=== PATIENT | male | born 1970 | race African-American/Black ===

== ENCOUNTER 2021-01-26 00:23 | Emergency (ER) | payer SELFPAY ==
[~2021-01-26] VITALS: Ht 162.6 cm; Wt 63.6 kg
[2021-01-26] MEDS ORDERED: DiphenhydrAMINE HCL 50 MG/ML VIAL IVP STA (02:59)
[2021-01-26] MEDS ORDERED: PERMETHRIN 5% 60 GM CREAM TP ONE (03:00)
[2021-01-26] MEDS ORDERED: PERTUSS(ACELL),DIPH,TET VAC/PF 0.5 ML SYRINGE IM. ONE (03:00)
[2021-01-26] MEDS ORDERED: DiphenhydrAMINE HCL 25 MG CAPSULE PO ONE (03:00)
[2021-01-26 03:10] VITALS: BP 128/79
== END 2021-01-26 03:59 | disposition home or self-care (01) ==
LOC: EMS 00:25
DX: S61.217A Laceration without foreign body of left little finger without damage to nail, initial encounter (principal); B86 Scabies; L29.9 Pruritus, unspecified; I10 Essential (primary) hypertension; Z88.5 Allergy status to narcotic agent; W26.0XXA Contact with knife, initial encounter; Y93.89 Activity, other specified; Y92.89 Other specified places as the place of occurrence of the external cause; Y99.8 Other external cause status
CPT/HCPCS: 90471; 90715; 99283

== ENCOUNTER 2021-03-10 12:06 | Emergency (ER) | payer SELFPAY ==
[~2021-03-10] VITALS: Ht 162.6 cm; Wt 69.1 kg
[2021-03-10 12:17] VITALS: BP 135/97
== END 2021-03-10 14:11 | disposition home or self-care (01) ==
LOC: EMS 12:29
DX: B86 Scabies (principal)
CPT/HCPCS: 99282; Z7502

== ENCOUNTER 2021-03-11 19:25 | Emergency (ER) | payer MEDICAID ==
[~2021-03-11] VITALS: Ht 162.6 cm; Wt 69.5 kg
[2021-03-11 21:23] VITALS: BP 149/78
[2021-03-11] MEDS ORDERED: PERMETHRIN 5% 60 GM CREAM TP ONE (21:45)
[2021-03-11] MEDS ORDERED: DiphenhydrAMINE HCL 25 MG CAPSULE PO ONE (22:00)
== END 2021-03-11 22:21 | disposition home or self-care (01) ==
LOC: EMS 19:27
DX: B86 Scabies (principal); I10 Essential (primary) hypertension; Z88.5 Allergy status to narcotic agent
CPT/HCPCS: 99283

== ENCOUNTER 2021-04-18 13:13 | Emergency (ER) | payer MEDICAID ==
[~2021-04-18] VITALS: Ht 165.1 cm; Wt 68.2 kg
[2021-04-18] MEDS ORDERED: CHOL400T56 PO (13:15)
[2021-04-18 13:18] VITALS: BP 163/99
== END 2021-04-18 14:30 | disposition home or self-care (01) ==
LOC: EMS 13:16
DX: I10 Essential (primary) hypertension (principal); Z88.5 Allergy status to narcotic agent
CPT/HCPCS: 99281; Z7502

== ENCOUNTER 2022-03-09 06:44 | Emergency (ER) | payer MEDICAID ==
[~2022-03-09] VITALS: Ht 162.6 cm; Wt 75.9 kg
[~2022-03-09 06:44] MED LIST: CHOL400T56 PO
[2022-03-09] MEDS ORDERED: LISI-892 PO (06:56)
[2022-03-09] MEDS ORDERED: HYDR25TA2 PO (06:56)
[2022-03-09] MEDS ORDERED: PRED1 PO (07:33)
[2022-03-09 08:52] LABS: BASOPHILS % (AUTO) 0.7 % (0.0-2.0); EOSINOPHILS % (AUTO) 3.4 % (1.0-6.0); HEMATOCRIT 41.9 % (41-53); HEMOGLOBIN 14.5 g/dL (13.5-17.5); LYMPHOCYTES # (AUTO) 2.4 K/uL (1.0-4.8); LYMPHOCYTES % (AUTO) 31.7 % (22.0-44.0); MEAN CORPUSCULAR HEMOGLOBIN 30.4 pg (26.0-34.0); MEAN CORPUSCULAR HGB CONC 34.5 G/dL (31.0-37.0); MEAN CORPUSCULAR VOLUME 88 fL (80-100); MONOCYTES # (AUTO) 0.6 K/uL (0.1-1.0); MONOCYTES % (AUTO) 7.5 % (2.0-9.0); NEUTROPHILS # (AUTO) 4.3 K/uL (1.8-7.7); NEUTROPHILS % (AUTO) 56.7 % (40.0-70.0); PLATELET COUNT (AUTO) 319 K/uL (150-450); RED BLOOD CELL COUNT(AUTO) 4.76 MIL/uL (4.50-5.90); RED CELL DISTRIBUTION WIDTH 13.4 % (11.5-14.5)
[2022-03-09 09:00] LABS: ANION GAP 6 mmol/L (8-16); CALCIUM, TOTAL 8.7 mg/dL (8.8-10.5); CARBON DIOXIDE 28 mmol/L (22-29); CHLORIDE 104 mmol/L (98-107); GLUCOSE,RANDOM 171 mg/dL (70-110); POTASSIUM 3.8 mmol/L (3.5-5.1); SODIUM SERUM 138 mmol/L (136-145); UREA NITROGEN, BLOOD 11 mg/dL (7-18)
[2022-03-09 09:01] LABS: GLOMERULAR FILTR. RATE CALC > 60 mL/min (>60)
[2022-03-09] MEDS ORDERED: SODIUM CHLORIDE 0.9% 100 ML ONE (09:09)
[2022-03-09] MEDS ORDERED: IOHEXOL 350 MG/ML 75 ML VIAL ONE (09:09)
[2022-03-09] MEDS ORDERED: KETOROLAC TROMETHAMINE 30 MG/ML VIAL IVP ONE (11:30)
[2022-03-09] MEDS ORDERED: CefTRIAXone 1 GM/DEXTROSE 50 ML IV ONE (11:30)
[2022-03-09 11:50] VITALS: BP 148/106
[2022-03-09] MEDS ORDERED: ACET-2080 PO (12:00)
[2022-03-09] MEDS ORDERED: CEPH-558 PO (12:00)
[2022-03-09] MEDS ORDERED: IBUP-1554 PO (12:00)
== END 2022-03-09 12:33 | disposition home or self-care (01) ==
LOC: EMS 06:45
DX: S13.4XXA Sprain of ligaments of cervical spine, initial encounter (principal); S60.221A Contusion of right hand, initial encounter; S20.219A Contusion of unspecified front wall of thorax, initial encounter; F12.90 Cannabis use, unspecified, uncomplicated; F10.20 Alcohol dependence, uncomplicated; F17.210 Nicotine dependence, cigarettes, uncomplicated; I10 Essential (primary) hypertension; J02.9 Acute pharyngitis, unspecified; V49.9XXA Car occupant (driver) (passenger) injured in unspecified traffic accident, initial encounter; Y93.89 Activity, other specified; Y92.89 Other specified places as the place of occurrence of the external cause; Y99.8 Other external cause status
CPT/HCPCS: 99285; 96365; 70491; 71045; 96375; 80048; 85025; 36415; 73130; J0696; J1885; Q9967; J7050

== ENCOUNTER 2022-10-18 14:47 | Emergency (ER) | payer MEDICAID ==
[~2022-10-18] VITALS: Ht 165.1 cm; Wt 63.6 kg
[~2022-10-18 14:47] MED LIST changes: +ACET-2080 PO; +CEPH-558 PO; +HYDR25TA2 PO; +IBUP-1554 PO; +LISI-892 PO; +PRED1 PO
[2022-10-18] MEDS ORDERED: LISI20TA24 PO (14:56)
[2022-10-18 17:24] VITALS: BP 160/98
[2022-10-18] MEDS ORDERED: DIPH25CA85 PO (17:58)
[2022-10-18] MEDS ORDERED: MINE50OI TP (17:58)
[2022-10-18] MEDS ORDERED: HYDR30CR39 TP (17:58)
== END 2022-10-18 18:38 | disposition home or self-care (01) ==
LOC: EMS 14:48
DX: L29.9 Pruritus, unspecified (principal); R21 Rash and other nonspecific skin eruption; I10 Essential (primary) hypertension; F17.210 Nicotine dependence, cigarettes, uncomplicated; F12.90 Cannabis use, unspecified, uncomplicated; Z88.5 Allergy status to narcotic agent
CPT/HCPCS: 99282; Z7502

== ENCOUNTER 2022-11-14 11:54 | Emergency (ER) | payer MEDICARE, MEDICAID ==
[~2022-11-14] VITALS: Ht 162.6 cm; Wt 65.0 kg
[~2022-11-14 11:54] MED LIST changes: -ACET-2080 PO; -CEPH-558 PO; -CHOL400T56 PO; +DIPH25CA85 PO; +HYDR30CR39 TP; -IBUP-1554 PO; -LISI-892 PO; +LISI20TA24 PO; +MINE50OI TP; -PRED1 PO
[2022-11-14] MEDS ORDERED: LISI-657 PO (12:08)
[2022-11-14] MEDS ORDERED: ACETAMINOPHEN 500 MG TABLET PO ONE (14:15)
[2022-11-14] MEDS ORDERED: BACITRACIN 0.9 GM PACKET OINTMENT TP ONE (14:15)
[2022-11-14] MEDS ORDERED: TraMADol HCL 50 MG TABLET PO ONE (14:15)
[2022-11-14] MEDS ORDERED: LIDOCAINE 1% 10 ML VIAL SQ ONE (15:15)
[2022-11-14] MEDS ORDERED: IVERMECTIN 3 MG TABLET PO ONE (15:30)
[2022-11-14] MEDS ORDERED: DOXY-354 PO (15:45)
[2022-11-14] MEDS ORDERED: CEPH-558 PO (15:45)
[2022-11-14] MEDS ORDERED: BACI28OI9 TP (15:45)
[2022-11-14] MEDS ORDERED: TRAM-559 PO (15:45)
[2022-11-14 16:00] VITALS: BP 156/91
== END 2022-11-14 16:04 | disposition home or self-care (01) ==
LOC: EMS 12:10
DX: L02.511 Cutaneous abscess of right hand (principal); L85.3 Xerosis cutis; I10 Essential (primary) hypertension; F17.210 Nicotine dependence, cigarettes, uncomplicated; F12.90 Cannabis use, unspecified, uncomplicated; Z88.5 Allergy status to narcotic agent
CPT/HCPCS: 99284; 10060; J3490

== ENCOUNTER 2023-10-18 16:31 | Emergency (ER) | payer OTHER ==
[~2023-10-18] VITALS: Ht 165.1 cm; Wt 60.0 kg
[~2023-10-18 16:31] MED LIST changes: +BACI28.410 TP; +CEPH-558 PO; -DIPH25CA85 PO; +DOXY-354 PO; -HYDR25TA2 PO; -HYDR30CR39 TP; +LISI-657 PO; -LISI20TA24 PO; -MINE50OI TP; +TRAM-559 PO
[2023-10-18 16:38] VITALS: BP 122/96; PULSE 104; RESP 18; TEMP 97.9
[2023-10-18] MEDS ORDERED: LISI10TA24 PO (16:47)
[2023-10-18] MEDS ORDERED: PERM60CR19 TP (18:44)
[2023-10-18] MEDS ORDERED: DIPH50CA37 PO (18:44)
[2023-10-18] MEDS ORDERED: IVERMECTIN 3 MG TABLET PO ONE (18:45)
== END 2023-10-18 20:47 | disposition home or self-care (01) ==
LOC: EMS 17:02
DX: L30.9 Dermatitis, unspecified (principal); I10 Essential (primary) hypertension; F17.210 Nicotine dependence, cigarettes, uncomplicated; F12.90 Cannabis use, unspecified, uncomplicated; Z98.890 Other specified postprocedural states; Z88.6 Allergy status to analgesic agent
CPT/HCPCS: 99282; Z7502; Z7610

== ENCOUNTER → 2023-12-20 | Emergency (ER) | payer OTHER ==
[~2023-12-20] MED LIST changes: -BACI28.410 TP; -CEPH-558 PO; +DIPH50CA37 PO; -DOXY-354 PO; -LISI-657 PO; +LISI1TAB53 PO; -TRAM-559 PO
== END | disposition still patient (30) ==
LOC: EMS 06:25
DX: Z53.21 Procedure and treatment not carried out due to patient leaving prior to being seen by health care provider (principal)

== ENCOUNTER 2024-01-19 23:16 | Emergency (ER) | payer OTHER ==
[~2024-01-19] VITALS: Ht 162.6 cm; Wt 61.0 kg
[2024-01-19 23:18] VITALS: BP 147/90; PULSE 100; RESP 20; TEMP 98.4
[2024-01-20] MEDS ORDERED: PRED-554 PO (01:21)
[2024-01-20] MEDS ORDERED: HYDR30CR3 TP (01:21)
[2024-01-20] MEDS: PredniSONE 20 MG TABLET PO ONE (01:35)
== END 2024-01-20 01:45 | disposition home or self-care (01) ==
LOC: EMS 23:16
DX: L30.9 Dermatitis, unspecified (principal); I10 Essential (primary) hypertension; F20.9 Schizophrenia, unspecified; F17.210 Nicotine dependence, cigarettes, uncomplicated; F12.90 Cannabis use, unspecified, uncomplicated; Z88.5 Allergy status to narcotic agent
CPT/HCPCS: 99283; J7512

== ENCOUNTER 2024-12-03 14:18 | Emergency (ER) | payer OTHER ==
[~2024-12-03] VITALS: Ht 160 cm; Wt 60.4 kg
[~2024-12-03 14:18] MED LIST changes: +HYDR30CR3 TP; +PRED-554 PO
[2024-12-03 14:30] VITALS: TEMP 98.2
[2024-12-03 15:49] LABS: BASOPHILS % (AUTO) 0.9 % (0.0-2.0); EOSINOPHILS % (AUTO) 5.1 % (1.0-6.0); HEMATOCRIT 42.1 % (41-53); HEMOGLOBIN 14.1 g/dL (13.5-17.5); LYMPHOCYTES # (AUTO) 2.4 K/uL (1.0-4.8); LYMPHOCYTES % (AUTO) 38.8 % (22.0-44.0); MEAN CORPUSCULAR HEMOGLOBIN 30.8 pg (26.0-34.0); MEAN CORPUSCULAR HGB CONC 33.5 G/dL (31.0-37.0); MEAN CORPUSCULAR VOLUME 92 fL (80-100); MONOCYTES # (AUTO) 0.4 K/uL (0.1-1.0); MONOCYTES % (AUTO) 6.6 % (2.0-9.0); NEUTROPHILS % (AUTO) 48.6 % (40.0-70.0); PLATELET COUNT (AUTO) 322 K/uL (150-450); RED BLOOD CELL COUNT(AUTO) 4.58 MIL/uL (4.50-5.90); RED CELL DISTRIBUTION WIDTH 14.1 % (11.5-14.5); WHITE BLOOD COUNT (AUTO) 6.1 K/uL (4.5-11.0)
[2024-12-03 15:55] LABS: ANION GAP 7 mmol/L (8-16); CALCIUM, TOTAL 9.3 mg/dL (8.8-10.5); CARBON DIOXIDE 27 mmol/L (22-29); CHLORIDE 105 mmol/L (98-107); CREATININE 0.84 mg/dL (0.60-1.30); GLOMERULAR FILTR. RATE CALC > 60 mL/min (>60); GLUCOSE,RANDOM 106 mg/dL (70-110); POTASSIUM 3.3 mmol/L (3.5-5.1); SODIUM SERUM 139 mmol/L (136-145); UREA NITROGEN, BLOOD 7 mg/dL (7-18)
[2024-12-03 15:59] LABS: ALBUMIN 3.2 g/dL (3.4-5.0); BILIRUBIN,DIRECT 0.1 mg/dL (0.00-0.20); BILIRUBIN,TOTAL 0.3 mg/dL (0.1-1.0); TOTAL PROTEIN, SERUM 7.2 g/dL (6.4-8.2)
[2024-12-03 16:04] LABS: B-TYPE NATRIURETIC PEPTIDE 20 pg/mL (0-100)
[2024-12-03 16:06] LABS: CREATINE KINASE, TOTAL ONLY 210 U/L (39-308); TROPONIN I-HIGH SENSITIVITY 21 ng/L (<76)
[2024-12-03] MEDS: IVERMECTIN 3 MG TABLET PO ONE (17:22)
[2024-12-03] MEDS ORDERED: SULF-261 PO (17:44)
[2024-12-03] MEDS ORDERED: CEPH-558 PO (17:44)
[2024-12-03 18:22] VITALS: BP 169/106; PULSE 88; RESP 17; O2SAT 97
== END 2024-12-03 18:25 | disposition home or self-care (01) ==
LOC: EMS 14:18
DX: L20.9 Atopic dermatitis, unspecified (principal); B86 Scabies; R07.9 Chest pain, unspecified; I10 Essential (primary) hypertension; F12.90 Cannabis use, unspecified, uncomplicated; F20.9 Schizophrenia, unspecified; Z88.5 Allergy status to narcotic agent; Z79.52 Long term (current) use of systemic steroids; Z79.899 Other long term (current) drug therapy
CPT/HCPCS: 71045; 80048; 80076; 82550; 83880; 84484; 85025; 93005; 99285; 36415-L1; 36415-TC